=== PATIENT | male | born 1985 | race Caucasian/White ===

== ENCOUNTER 2022-02-18 08:36 | Emergency (ER) | payer BC, OTHER ==
[~2022-02-18] VITALS: Ht 175.2 cm; Wt 101.7 kg
[2022-02-18 08:56] LABS: CLARITY,URINE CLEAR; GLUCOSE, URINE (UA) NEGATIVE (NEGATIVE); KETONES,URINE NEGATIVE (NEGATIVE); LEUKOCYTE ESTERASE ,URINE NEGATIVE (NEGATIVE); NITRITE,URINE NEGATIVE (NEGATIVE); PROTEIN,URINE TRACE (NEGATIVE)
[2022-02-18 09:02] LABS: BACTERIA,URINE MODERATE /HPF; COLOR,URINE DARK YELLOW
[2022-02-18 09:03] LABS: BILIRUBIN,URINE 1+ (NEGATIVE); YEAST,URINE FEW /HPF
[2022-02-18 09:07] LABS: AMPHETAMINE SCREEN, URINE NEGATIVE (NEGATIVE); BARBITURATE SCREEN URINE NEGATIVE (NEGATIVE); BENZODIAZEPINES SCREEN URINE NEGATIVE (NEGATIVE); CANNABINOID SCREEN, URINE NEGATIVE (NEGATIVE); COCAINE SCREEN URINE NEGATIVE (NEGATIVE); METHADONE STAT NEGATIVE (NEGATIVE); OPIATE SCREEN URINE NEGATIVE (NEGATIVE); OXYCODONE STAT NEGATIVE (NEGATIVE); PROPOXYPHENE STAT NEGATIVE (NEGATIVE); TRICYCLIC ANTIDEPRESSANTS SCRE NEGATIVE (NEGATIVE)
--- NOTE | 2022-02-18 09:28 | ED General ---
General Chief Complaint: Back Problems Stated Complaint: RIGHT FLANK PAIN Nursing Triage Note: Patient presents to the ED with c/o right flank pain. Reports he was seen at [facility] ED yesterday evening and diagnosed with a kidney stone. States he was prescribed flomax and Ibuprofen. Reports severe pain since 1am in right flank. History of Present Illness Date Seen by Provider: February 18, 2022 Time Seen by Provider: 09:00 Initial Comments 36-year-old male with PMH of multiple episodes of past kidney stones, is here with complaints of a right-sided 3 mm kidney stone. Patient has come to the ER in [place] last night and early today morning due to the pain. He had a CAT scan and labs done at [place], and was given Flomax and ibuprofen for the pain as needed he has come to [place] ER directly from [place] ER on his own, for pain control. Patient complains of 10/10 pain. Will call [place] to obtain records. Denies fever, chest pain, SOB, diarrhea, dysuria, hematuria, vomiting. Patient has some associated nausea. Allergies and Home Medications Allergies Coded Allergies: No Known Drug Allergies (Unverified , 02/18/22) Patient Home Medication List Home Medication List Reviewed: Yes Oxycodone HCl/Acetaminophen (Percocet 5-325 mg Tablet) 1 Each Tablet, 1 TAB PO Q6H Prescribed by: ISIDORO BROWN MD on 02/18/22 1047 Review of Systems Review of Systems Constitutional: no symptoms reported EENTM: no symptoms reported Respiratory: no symptoms reported Cardiovascular: no symptoms reported Gastrointestinal: nausea, other (flank pain) Genitourinary: pain Musculoskeletal: no symptoms reported Skin: no symptoms reported Psychiatric/Neurological: No Symptoms Reported Hematologic/Lymphatic: No Symptoms Reported Immunological/Allergic: no symptoms reported Past Zlrnjpc-[place] Hx Patient Social History Tobacco Use?: Yes Tobacco type used: Cigarettes Smoking Status: Current Everyday Smoker Substance use?: No Alcohol Use?: No Pt feels they are or have been: No Immunizations Up To Date First/Initial COVID19 Vaccinat: Not currently vaccinated Past Medical History Surgery/Hospitalization HX: HTN; Shoulder surgery; Hernia repair x2; Kidney Stones Physical Exam Vital Signs Vital Signs - First Documented 02/18/22 08:49 Temp 36.4 Pulse 73 Resp 16 B/P (MAP) 153/101 (118) Pulse Ox 97 O2 Delivery Room Air Capillary Refill : Less Than 3 Seconds Height, Weight, BMI Height: '" Weight: lbs. oz. kg; 33.00 BMI Method: General Appearance: Mild Distress HEENT: PERRL/EOMI Neck: Full Range of Motion Respiratory: Lungs Clear, Normal Breath Sounds Cardiovascular: Regular Rate, Rhythm Gastrointestinal: Normal Bowel Sounds, Non Tender, Soft Back: CVA Tenderness (R) Neurologic/Psychiatric: Alert, Oriented x3 Progress/Results/Core Measures Suspected Sepsis SIRS Temperature: Pulse: 73 Respiratory Rate: 16 Blood Pressure 153 /101 Mean: 118 Results/Orders Lab Results Laboratory Tests Test 02/18/22 08:42 Range/Units Urine Color DARK YELLOW Urine Clarity CLEAR Urine pH 6.0 5-9 Urine Specific Irwin >=1.030 1.016-1.022 Urine Protein TRACE H NEGATIVE Urine Glucose (UA) NEGATIVE NEGATIVE Urine Ketones NEGATIVE NEGATIVE Urine Nitrite NEGATIVE NEGATIVE Urine Bilirubin 1+ H NEGATIVE Urine Urobilinogen 1.0 < = 1.0 MG/DL Urine Leukocyte Esterase NEGATIVE NEGATIVE Urine RBC (Auto) 2+ H NEGATIVE Urine RBC 10-25 H /HPF Urine WBC 2-5 /HPF Urine Crystals NONE /LPF Urine Bacteria MODERATE H /HPF Urine Casts NONE /LPF Urine Mucus LARGE H /LPF Urine Yeast FEW H /HPF Urine Culture Indicated YES Urine Opiates Screen NEGATIVE NEGATIVE Urine Oxycodone Screen NEGATIVE NEGATIVE Urine Methadone Screen NEGATIVE NEGATIVE Urine Propoxyphene Screen NEGATIVE NEGATIVE Urine Barbiturates Screen NEGATIVE NEGATIVE Ur Tricyclic Antidepressants Screen NEGATIVE NEGATIVE Urine Phencyclidine Screen NEGATIVE NEGATIVE Urine Amphetamines Screen NEGATIVE NEGATIVE Urine Methamphetamines Screen NEGATIVE NEGATIVE Urine Benzodiazepines Screen NEGATIVE NEGATIVE Urine Cocaine Screen NEGATIVE NEGATIVE Urine Cannabinoids Screen NEGATIVE NEGATIVE My Orders Orders - ISIDORO BROWN MD Ketorolac Injection (Toradol Injection) (02/18/22 09:30) Ed Iv/Invasive Line Start (02/18/22 09:20) Ns Iv 1000 Ml (Sodium Chloride 0.9%) (02/18/22 09:30) Hydromorphone Injection (Dilaudid Inject (02/18/22 10:14) Medications Given in ED Current Medications Medications Dose Ordered Sig/Sally Route Start Time Stop Time Status Last Admin Dose Admin Ketorolac Tromethamine 15 mg ONCE ONCE IVP 02/18/22 09:30 5/21/22 09:31 DC 02/18/22 09:27 15 MG Vital Signs/I&O 02/18/22 08:49 Temp 36.4 Pulse 73 Resp 16 B/P (MAP) 153/101 (118) Pulse Ox 97 O2 Delivery Room Air Capillary Refill : Less Than 3 Seconds Blood Pressure Mean: 118 Progress Note : Progress Note 1. RIGHT NEPHROLITHIASIS: - UA/ UDS in [place] ER: Negative for nitrites and LE - Requested [place] ER to fax labs and CT report to us - Toradol 15mg iv and NS IVF bolus STAT, not controlling pain so added Dilaudid 1mg iv - Prescriptions for Percocet 1 tab Q6H, total of 6 tabs prescribed for severe pain. Mild or moderate pain, take Ibuprofen 600mg Q8H - Adequate hydration advised - Follow up with Urology within the next 3 to 7 days -The patient was seen in the ED, and treated appropriately to presentation at a specific point in time. Patient is informed that there is a possibility that disease and illness can evolve and change in acuity rapidly or slowly after patient is discharged from the ER. Precautionary advice given to the patient for immediate return to ER if symptoms worsen or do not resolve, and to seek emergency care sooner rather than later. Pt also advised on the importance of PCP follow up and compliance with management and follow up plan with PCP and/or specialist, as this is part of the management plan. Pt verbally expressed understanding. - Reviewed labs and CT scan done at [facility] ER: shows 3 mm stone and unremarkable labs and urine. Pt was given a prescriptiin for Zofran and Flomax from [place] Departure Impression Primary Impression: Right nephrolithiasis Disposition: 01 HOME, SELF-CARE Condition: Stable Departure-Patient Inst. Referrals: AICHA QUIROZ DO (PCP/Family) Primary Care Physician Patient Instructions: Kidney Stones (DC), How to Strain Your Urine, Kidney Stone Diet Add. Discharge Instructions: - Percocet 1 tab every 6 hours as needed for severe pain. Mild or moderate pain, take Ibuprofen 600mg Q8H - Adequate hydration advised - Follow up with Urology within the next 3 to 7 days - Return to ER if not improving All discharge instructions reviewed with patient and/or family. Voiced understanding. Scripts Oxycodone HCl/Acetaminophen (Percocet 5-325 mg Tablet) 1 Each Tablet 1 TAB PO Q6H for PAIN-MODERATE MDD 6 TABS for 2 Days, #6 TAB Prov: ISIDORO BROWN MD 02/18/22 ISIDORO BROWN MD February 18, 2022 09:28
[2022-02-18] MEDS ORDERED: NS IV 1000 ML 1,000 ML IV SCH (09:30)
[2022-02-18] MEDS ORDERED: KETOROLAC 30 MG/ML VIAL IVP ONE (09:30)
[2022-02-18] MEDS ORDERED: HYDROmorphone 2 MG/ML VIAL (DILAUDID) IVP STA (10:14)
[2022-02-18] MEDS ORDERED: OXYC1TAB87 PO (10:46)
[2022-02-18 11:55] VITALS: BP 142/84
== END 2022-02-18 11:55 | disposition home or self-care (01) ==
LOC: ER FS 08:39
DX: N20.0 Calculus of kidney (principal); F17.210 Nicotine dependence, cigarettes, uncomplicated
CPT/HCPCS: 80306; 81000; 87077; 87088; 87186